=== PATIENT | male | born 1970 | race Caucasian/White ===

== ENCOUNTER → 2017-11-24 | Outpatient (REF) | payer MEDICARE ==
[2017-11-24 21:34] LABS: REASON FOR REVIEW WBC/LEUKEMIA/BLAST; SLIDE REVIEW Report; SOURCE PERIPHERAL SMEAR
== END ==
LOC: M LAB REF 16:50
DX: D72.829 Elevated white blood cell count, unspecified (principal)

== ENCOUNTER → 2017-12-29 | Outpatient (CLI) | payer MEDICARE ==
[2017-12-29 15:00] LABS: HEMATOCRIT 46.6 % (42.0-52.0); HEMOGLOBIN 15.9 g/dl (13.5-17.5); MEAN CORPUSCULAR HEMOGLOBIN 30.9 pg (27.0-33.0); MEAN CORPUSCULAR HGB CONC 34.1 g/dl (32.0-36.5); MEAN CORPUSCULAR VOLUME 90.5 fl (80.0-96.0); PLATELET COUNT, AUTOMATED 143 10^3/uL (150-450); RED BLOOD COUNT 5.15 10^6/uL (4.30-6.10); RED CELL DISTRIBUTION WIDTH 13.2 % (11.5-14.5); WHITE BLOOD COUNT 19.8 10^3/uL (4.0-10.0)
[2017-12-29 15:10] LABS: INR 0.95; PROTHROMBIN TIME 12.8 SECONDS (12.1-14.4)
[2017-12-29 15:11] LABS: PARTIAL THROMBOPLASTIN TIME 31.2 SECONDS (25.4-37.6)
[2017-12-29 15:22] LABS: ABG BASE EXCESS -0.8 (-2.0-2.0); ABG DEVICE ROOM AIR; ABG HCO3 22.7 MEQ/L (22.0-26.0); ABG O2 SATURATION 96.7 % (95.0-99.0); ABG PARTIAL PRESSURE CO2 34.8 mmHg (35.0-45.0); ABG PARTIAL PRESSURE O2 81.9 mmHg (75.0-100.0); ABG STANDARD HCO3 23.8 MEQ/L (22.0-26.0); ABG TOTAL CO2 23.8 MEQ/L (22.0-29.0); ABG pH (ARTERIAL) 7.433 UNITS (7.350-7.450)
[2017-12-29 15:37] LABS: ANION GAP 8 MEQ/L (8-16); BLOOD UREA NITROGEN 13 MG/DL (7-18); CALCIUM LEVEL 9.3 MG/DL (8.5-10.1); CARBON DIOXIDE LEVEL 23 MEQ/L (21-32); CHLORIDE LEVEL 109 MEQ/L (98-107); CREATININE FOR GFR 0.74 MG/DL (0.70-1.30); GLOMERULAR FILTRATION RATE > 60.0 (>60); GLUCOSE, FASTING 90 MG/DL (70-100); POTASSIUM SERUM 4.3 MEQ/L (3.5-5.1); SODIUM LEVEL 140 MEQ/L (136-145)
[2017-12-29 16:14] LABS: APPEARANCE, URINE HAZY (CLEAR); BACTERIA, URINE AUTO NEGATIVE (NEGATIVE); BILIRUBIN, URINE AUTO NEGATIVE (NEGATIVE); BLOOD, URINE BLOOD NEGATIVE (NEGATIVE); COLOR, URINE AMBER (YELLOW); GLUCOSE, URINE (UA) AUTO NEGATIVE (NEGATIVE); KETONE, URINE AUTO TRACE mg/dL (NEGATIVE); LEUKOCYTE ESTERASE, URINE AUTO NEGATIVE (NEGATIVE); MUCUS, URINE LARGE (NEGATIVE); NITRITE, URINE AUTO NEGATIVE (NEGATIVE); PROTEIN, URINE AUTO NEGATIVE (NEGATIVE); RBC, URINE AUTO 4 /HPF (0-3); SPECIFIC GRAVITY URINE AUTO 1.026 (1.002-1.035); SQUAMOUS EPITHELIAL CELL UR AU 0 /HPF (0-6); WBC, URINE AUTO 1 /HPF (0-3)
== END ==
LOC: M ADMPAT 13:49
DX: Z01.818 Encounter for other preprocedural examination (principal); R59.0 Localized enlarged lymph nodes; Z91.030 Bee allergy status
CPT/HCPCS: 71046

== ENCOUNTER 2017-12-30 05:57 | Day surgery (SDC) | payer MEDICARE ==
[2017-12-30] MEDS ORDERED: LR 1,000 ML IV ×2 (06:15→10:15)
[2017-12-30] MEDS ORDERED: LIDOCAINE 2% INJ 100 MG/5 ML SDV (FOR ANES.) As Ordered (07:14)
[2017-12-30] MEDS: EPINEPHrine 1MG/10ML SYRINGE 1.5IN As Ordered (07:14)
[2017-12-30] MEDS ORDERED: PROPOFOL 200 MG/20 ML VIAL As Ordered (07:14)
[2017-12-30] MEDS ORDERED: ROCURONIUM BROMIDE 50 MG/5 ML VIAL As Ordered (07:14)
[2017-12-30] MEDS ORDERED: fentaNYL 100 MCG/2 ML INJECTION (J3010) As Ordered (07:15)
[2017-12-30] MEDS ORDERED: MIDAZOLAM INJ 2 MG/2 ML VIAL (J2250) As Ordered (07:15)
[2017-12-30] MEDS: MUPIROCIN 2% OINT 22 GM TUBE TOP (08:13)
[2017-12-30] MEDS: CETACAINE SPRAY 5GM As Ordered (08:18)
[2017-12-30] MEDS ORDERED: fentaNYL 250 MCG/5 ML INJECTION (J3010) As Ordered (08:39)
[2017-12-30] MEDS: THROMBIN SOLN 20,000 UNITS KIT As Ordered (08:49)
[2017-12-30] MEDS ORDERED: KETOROLAC 60 MG/2 ML VIAL (J1885) As Ordered (09:03)
[2017-12-30] MEDS ORDERED: ONDANSETRON 4MG/2ML VIAL (J2405) As Ordered (09:03)
[2017-12-30] MEDS ORDERED: dexameTHASONE 4 MG/ML 1ML VIAL (J1100) As Ordered ×2 (09:03)
[2017-12-30] MEDS ORDERED: NEOSTIGMINE 10 MG/10 ML VIAL (J2710) As Ordered (09:03)
[2017-12-30] MEDS ORDERED: GLYCOPYRROLATE INJ 0.2 MG/ML 2 ML VIAL As Ordered (09:03)
[2017-12-30] MEDS: BUPIVACAINE LIPOSOME/PF 1.3% 20 ML VIAL (13.3MG/ML)(EXPAREL) As Ordered (09:25)
[2017-12-30] MEDS ORDERED: ONDANSETRON 4MG/2ML VIAL (J2405) IV (10:15)
[2017-12-30] MEDS ORDERED: MORPHINE 10 MG/ML 1ML VIAL (J2270) IV (10:15)
[2017-12-30] MEDS ORDERED: PERCOCET 5MG/325MG TAB PO ×2 (10:15)
[2017-12-30] MEDS ORDERED: fentaNYL 100 MCG/2 ML INJECTION (J3010) IV (10:15)
[2017-12-30] MEDS ORDERED: HEPARIN SOD (PORCINE) 5000 UNITS/ML VIAL As Ordered ×2 (15:17)
[2017-12-30] MEDS ORDERED: PHENYLephrine HCL 500 MCG/5 ML (100MCG/ML) SYRINGE (J2370) As Ordered (15:17)
[2017-12-30] MEDS ORDERED: PHENYLEPHRINE INJ 10MG/ML VIAL (J2370) As Ordered (15:28)
== END 2017-12-30 10:52 | disposition home or self-care (01) ==
LOC: M SDC 05:57
DX: R59.0 Localized enlarged lymph nodes (principal); I10 Essential (primary) hypertension; H91.3 Deaf nonspeaking, not elsewhere classified; J45.909 Unspecified asthma, uncomplicated; J44.9 Chronic obstructive pulmonary disease, unspecified; E78.00 Pure hypercholesterolemia, unspecified; M12.9 Arthropathy, unspecified; Z79.899 Other long term (current) drug therapy; Z72.0 Tobacco use; Z86.69 Personal history of other diseases of the nervous system and sense organs
CPT/HCPCS: 39401

== ENCOUNTER → 2018-01-05 | Outpatient (CLI) | payer MEDICARE | LOC: M SMT 09:02 | DX: J98.11 Atelectasis (principal) | CPT/HCPCS: 71046 ==

== ENCOUNTER 2018-06-16 13:16 | Emergency (ER) | payer MEDICARE ==
[~2018-06-16] VITALS: Ht 182.9 cm; Wt 88.4 kg
[~2018-06-16 13:16] MED LIST: ALEV220C2 PO; AMLO5TAB6 PO; CRES10TA PO; VITA1CHW11 PO
[2018-06-16 14:20] LABS: BASO # 0.1 10^3/uL (0.0-0.2); BASO % 0.5 % (0.0-1.0); EOS # 0.2 10^3/uL (0.0-0.50); EOS % 1.1 % (0.0-3.0); HEMOGLOBIN 16.3 g/dl (13.5-17.5); LYMPH # 3.1 10^3/uL (1.5-4.5); MEAN CORPUSCULAR HEMOGLOBIN 31.2 pg (27.0-33.0); MEAN CORPUSCULAR HGB CONC 34.7 g/dl (32.0-36.5); MONO # 0.7 10^3/uL (0.0-0.8); MONO % 4.3 % (0.0-5.0); NEUTROPHILS # 12.1 10^3/uL (1.8-7.7); NEUTROPHILS % 74.8 % (36.0-66.0); PLATELET COUNT, AUTOMATED 146 10^3/uL (150-450); RED BLOOD COUNT 5.22 10^6/uL (4.30-6.10); WHITE BLOOD COUNT 16.2 10^3/uL (4.0-10.0)
[2018-06-16 14:26] LABS: ALT/SGPT 40 U/L (12-78); BILIRUBIN,DIRECT < 0.1 MG/DL (0.0-0.2); BILIRUBIN,TOTAL 0.4 MG/DL (0.2-1.0); BLOOD UREA NITROGEN 14 MG/DL (7-18); CALCIUM LEVEL 8.9 MG/DL (8.5-10.1); CARBON DIOXIDE LEVEL 25 MEQ/L (21-32); CHLORIDE LEVEL 107 MEQ/L (98-107); CREATININE FOR GFR 0.84 MG/DL (0.70-1.30); GLOMERULAR FILTRATION RATE > 60.0 (>60); GLUCOSE, FASTING 113 MG/DL (70-100); LIPASE 88 U/L (73-393); POTASSIUM SERUM 4.3 MEQ/L (3.5-5.1); SODIUM LEVEL 141 MEQ/L (136-145); TOTAL PROTEIN 6.8 GM/DL (6.4-8.2)
[2018-06-16] MEDS ORDERED: MORPHINE 4 MG/ML 1ML VIAL/SYRINGE (J2270) IV ONE (14:30)
[2018-06-16] MEDS ORDERED: NS 1,000 ML IV ONE (14:30)
[2018-06-16] MEDS ORDERED: ISOVUE-370 76% 125ML VIAL (Q9967 PER ML) As Ordered ONE (14:37)
--- NOTE | 2018-06-16 15:05 | REP ---
Clinical: Acute left lower quadrant pain. Technique: Axial contrast enhanced images from the lung bases to the pubic symphysis using 100 ml Isovue 370 intravenous contrast material with coronal and sagittal re-formations. Comparison: None. Findings: Lung bases demonstrate chronic interstitial changes and relatively chronic bibasilar ground-glass opacities similar to 12/30/2017. Liver, spleen, pancreas, gallbladder, bilateral adrenal glands and kidneys are normal. The enteric system is without obstruction or acute inflammatory process. Normal terminal ileum and appendix are identified in the right lower quadrant. Pelvis demonstrates normal bladder and age appropriate prostate/seminal vesicles. No ascites. No free air. No adenopathy. Abdominal aorta without aneurysm or dissection. Musculoskeletal structures are intact. Impression: 1. No acute abdominopelvic pathology appreciated. No ascites, focal inflammatory stranding, or adenopathy. 2. Lung bases demonstrate ground-glass opacities and increased interstitial markings similar to prior examination. Chronic pulmonary process cannot be excluded. Electronically Signed by Travis Purcell MD 06/16/2018 02:55 P
--- NOTE | 2018-06-16 16:47 | REP ---
Clinical: Testicular pain. Technique: Real time medina scale and color Doppler evaluation using linear and curved array transducers. Findings: Bilateral testicles and epididymi are relatively normal in contour, size, echogenicity, and vascularity without evidence for torsion, intratesticular mass lesion or infectious/inflammatory process. Incidental right epididymal head cyst measures 7 mm maximal diameter. Small bilateral hydroceles are nonspecific. No varicoceles. Right testicle measures 5.7 x 2.7 x 4.2 cm. Left testicle measures 5.0 x 3.0 x 3.5 cm. Impression: 1. Small incidental hydroceles and 7 mm right epididymal head cyst. 2. Otherwise normal scrotal ultrasound. Electronically Signed by Travis Purcell MD 06/16/2018 04:38 P
[2018-06-16] MEDS ORDERED: ONDA4TAB6 PO (17:25)
[2018-06-16] MEDS ORDERED: KETO10TAB PO (17:25)
[2018-06-16 17:33] VITALS: BP 117/70
--- NOTE | 2018-06-18 09:57 | ED PDOC ---
Post-Departure Follow-Up additionally ct abd/p faxed to dr sorto for fu Sarah Henriquez MD Jun 18, 2018 09:57
--- NOTE | 2018-06-18 09:57 | ED PDOC ---
Post-Departure Follow-Up dr sorto faxed formal report of scrotal us for fu Sarah Henriquez MD Jun 18, 2018 09:56
== END 2018-06-16 17:33 | disposition home or self-care (01) ==
LOC: M ED 13:16
DX: R10.32 Left lower quadrant pain (principal); N43.3 Hydrocele, unspecified; N50.3 Cyst of epididymis; R91.8 Other nonspecific abnormal finding of lung field; I10 Essential (primary) hypertension; E78.5 Hyperlipidemia, unspecified; R56.9 Unspecified convulsions; Z79.899 Other long term (current) drug therapy
CPT/HCPCS: 36415; 74177; 76870; 80048; 80076; 81001; 83690; 85025; 93976; 96361; 96374; 99284; J2270; Q9967

== ENCOUNTER → 2019-04-24 | Outpatient (CLI) | payer MEDICARE, MEDICAID ==
[~2019-04-24] MED LIST changes: +KETO10TAB PO; +ONDA4TAB6 PO
--- NOTE | 2019-04-24 19:28 | REP ---
MRI RIGHT SHOULDER: TECHNIQUE: Axial T2 fat sat, coronal oblique T1, T2 fat sat, post arthrogram axial T1 fat sat, proton density, coronal oblique T1 fat sat, T2 sat, sagittal oblique T2 fat sat, ABER T1 fat sat. There is mild ill-defined high signal on T2-weighted images involving the supraspinatus tendon compatible with mild tendinopathy/tendinitis. No rotator cuff tendon tear is seen. There are mild hypertrophic degenerative changes of the acromioclavicular joint with subchondral marrow edema on both sides of the joint. Acromion is type 2. Biceps tendon is within the bicipital groove with no tenosynovitis. There is no Hill-Sachs deformity. Deltoid muscle demonstrates no abnormal signal. There is a diffuse SLAP tear undermining the biceps labral complex and extending into the upper aspect of the posterior labrum. No other abnormal bone marrow signal is seen. There is a small amount of joint fluid. No paralabral cyst is seen. IMPRESSION: Mild supraspinatus tendinopathy/tendinitis. No discrete rotator cuff tear. Mild hypertrophic degenerative changes acromioclavicular joint with subchondral marrow edema and a type 2 acromion. There is a diffuse SLAP tear noted undermining the biceps labral complex and extending into the upper aspect of the posterior labrum. Electronically Signed by Miles Aguilar MD 04/25/2019 05:04 P
== END ==
LOC: M RAD 16:24
PROVIDERS: ATTEND Orthopaedic Surgery Sports Medicine
DX: M25.511 Pain in right shoulder (principal)

== ENCOUNTER → 2019-08-16 | Outpatient (CLI) | payer MEDICARE, MEDICAID ==
[~2019-08-16] MED LIST changes: +CVS10CAP8 PO
--- NOTE | 2019-08-17 22:05 | ECGEPIP ---
[facility] Test Date: 2019-08-16 Pat Name: IHSAN MCDONOUGH Department: Room: - Gender: Male [employer] Registrar: ANAYELI : [id number] Requested By: JORGE BOLTON Order Number: [id number] Reading MD: Adrian Garrison Measurements Intervals [place] Rate: 54 P: 46 ID: [id number] QRS: 1 QRSD: 96 T: 20 QT: 395 QTc: 375 Interpretive Statements SINUS BRADYCARDIA EARLY REPOLARIZATION TALL T-WAVES, SUGGESTS HYPERKALEMIA Decreased heart rate compared with 12/29/2017. Electronically Signed on 08-17-2019 22:04:36 EDT by Adrian Garrison
== END ==
LOC: M EKG 11:02
PROVIDERS: ATTEND Orthopaedic Surgery Sports Medicine
DX: Z01.810 Encounter for preprocedural cardiovascular examination (principal); R00.1 Bradycardia, unspecified

== ENCOUNTER 2019-08-18 16:56 | Emergency (ER) | payer MEDICARE, MEDICAID ==
[~2019-08-18] VITALS: Ht 182.9 cm; Wt 84.6 kg
[~2019-08-18 16:56] MED LIST changes: +AMLO1TAB24 PO; -AMLO5TAB6 PO; -CVS10CAP8 PO
[2019-08-18 18:22] LABS: BASO # 0.1 10^3/uL (0.0-0.2); BASO % 0.6 % (0.0-1.0); EOS # 0.2 10^3/uL (0.0-0.5); EOS % 2.1 % (0.0-3.0); HEMATOCRIT 44.9 % (42.0-52.0); HEMOGLOBIN 15.7 g/dl (13.5-17.5); LYMPH # 3.2 10^3/uL (1.5-5.0); LYMPH % 31.1 % (24.0-44.0); MEAN CORPUSCULAR VOLUME 91.4 fl (80.0-96.0); MONO # 0.5 10^3/uL (0.0-0.8); MONO % 5.3 % (0.0-5.0); NEUTROPHILS # 6.2 10^3/uL (1.5-8.5); NEUTROPHILS % 60.6 % (36.0-66.0); PLATELET COUNT, AUTOMATED 134 10^3/uL (150-450); RED BLOOD COUNT 4.91 10^6/uL (4.30-6.10); WHITE BLOOD COUNT 10.2 10^3/uL (4.0-10.0)
[2019-08-18] MEDS ORDERED: CVS10CAP8 PO (18:30)
[2019-08-18 18:46] LABS: BLOOD UREA NITROGEN 16 MG/DL (7-18); CALCIUM LEVEL 8.4 MG/DL (8.5-10.1); CARBON DIOXIDE LEVEL 26 MEQ/L (21-32); CHLORIDE LEVEL 108 MEQ/L (98-107); CREATININE FOR GFR 0.71 MG/DL (0.70-1.30); GLOMERULAR FILTRATION RATE > 60.0 (>60); GLUCOSE, FASTING 113 MG/DL (70-100); POTASSIUM SERUM 4.9 MEQ/L (3.5-5.1); SODIUM LEVEL 142 MEQ/L (136-145)
[2019-08-18 20:00] VITALS: BP 133/80
--- NOTE | 2019-08-19 19:49 | ECGEPIP ---
[facility] - ED Test Date: 2019-08-18 Pat Name: IHSAN MCDONOUGH Department: Room: - Gender: Male [employer]: radha : [id number] Requested By: ROMERO Jones Order Number: [id number] Reading MD: Rosario Bell Measurements Intervals [place] Rate: 72 P: 11 CT: 164 QRS: -11 QRSD: 95 T: 18 QT: 360 QTc: 395 Interpretive Statements SINUS RHYTHM MODERATE VOLTAGE CRITERIA FOR LVH, CONSIDER NORMAL VARIANT EARLY REPOLARIZATION PROMINENT T WAVES INCREASED RATE 08/16/19 Electronically Signed on 08-19-2019 19:48:57 EDT by Rosario Bell
== END 2019-08-18 20:39 | disposition home or self-care (01) ==
LOC: M ED 16:56
DX: R94.31 Abnormal electrocardiogram [ECG] [EKG] (principal); Z11.59 Encounter for screening for other viral diseases; Z79.899 Other long term (current) drug therapy; Z91.030 Bee allergy status
CPT/HCPCS: 36415; 80048; 85025; 93005; 93041; 94760; 99285; U0003

== ENCOUNTER → 2019-08-18 | Outpatient (CLI) | payer MEDICARE, MEDICAID | LOC: M LABSMTC 10:11 | PROVIDERS: ATTEND Orthopaedic Surgery Hand Surgery | DX: Z11.59 Encounter for screening for other viral diseases (principal) ==